=== PATIENT | male | born 1975 | race Caucasian/White ===

== ENCOUNTER → 2017-07-13 | Day surgery (SDC) | payer OTHER ==
[~2017-07-13] VITALS: Ht 188 cm; Wt 116.4 kg
[2017-07-13] VITALS (7 sets, daily range): BP systolic 115–134; BP diastolic 82–95; PULSE 62–74; RESP 15–19; O2SAT 97–100
[~2017-07-13] MED LIST: ACET-171 PO; Bupivacaine Liposome 1.3% 20 mL Inj INFILTRATE ONE; Bupivacaine Liposome 1.3% 20 mL Inj ONE; Bupivacaine-MPF 0.5% 30 mL Inj INFILTRATE ONE; CYCL10TA9 PO; Dexamethasone 4 mg/mL Inj IVPUSH PRN; EPHEDrine Sulfate 50 mg/mL Inj IVPUSH PRN; HYDR30CR98 RC; HYDROmorphone 1 mg/mL Inj IVPUSH PRN; IBUP-1827 PO; Lactated Ringer's 1,000 ML IV ONE; Lactated Ringer's 1,000 ML IV SCH; Lactated Ringer's 500 ML IV PRN; MetoCLOpramide 5 mg/mL 2 mL Inj IVPUSH PRN; NPR500T PO; OXYC-530 PO; Ondansetron 2 mg/mL 2 mL Inj IVPUSH PRN; Ondansetron 2 mg/mL 2 mL Inj ONE; POLY17PO6 PO; Phenylephrine 10,000 mCg/mL Inj IVPUSH PRN; Propofol 10,000 mCg/mL 20 mL Inj ONE; fentaNYL-PF 50 mCg/mL 2 mL Inj IVPUSH PRN; fentaNYL-PF 50 mCg/mL 2 mL Inj ONE
--- NOTE | 2017-07-13 13:43 | PCM.HPANE ---
Patient Data Surgeon Admitting Provider: Attending Provider:Lisa Drummond MD Primary Care Physician:Trena Lazo DO Other Provider:Avril Brooksingham Anesthesia Reason for Visit External Hemorrhoids Ht/WT & BMI Height (Feet): 6 Height (Inches): 2 Weight (Kilograms): 116.4 Body Mass Index 32.00 Allergies Coded Allergies: No Known Allergies (Unverified , 07/13/17) Past Anesthesia History Anesthesia History: Denies:: Abnormal Airway, Anesthesia Reactions, Difficult Intubation, Fam Anesthesia Reaction Diabetes History Hx Diabetes?: No MRSA MRSA: No Medications Active Scripts Polyethylene Glycol 3350 (Miralax)17 Gm Powd.pack17 Gm PO DAILY PRN For Constipation #1 BOTTLE Prov:Dorothea Paez MD 07/13/17 oxyCODONE 5 Mg Tablet5 Mg PO Q4H PRN For Pain #20 TABLET Prov:Dorothea Paez MD 07/13/17 Ibuprofen 600 Mg [id number] Mg PO QID PRN For Pain #30 TABLET Prov:Dorothea Paez MD 07/13/17 Acetaminophen 500 Mg [id number] Mg PO Q6H PRN For Pain #60 TABLET Prov:Dorothea Paez MD 07/13/17 Reported Medications Naproxen 500 Mg [id number] Mg PO BID PRN For Pain Ref 0 07/07/17 Hydrocortisone 2.5 % Cream.appl30 Gm RC PRN skin irritation 07/07/17 Cyclobenzaprine 10 Mg [id number] Mg PO TID PRN Spasm 07/07/17 History History of ENT Problems?: No HEENT History: Denies:: Abnormal Airway Cataracts Difficult Intubation Dysphagia Glaucoma Hearing Problem Sinus Problem TMJ Denture Type: Full- Upper Teeth Condition: Within Normal Limits Hx of Heart Problems?: No Cardiovascular History: Positive for:: Chest Pain (chronic, cardiac source ruled out by Dr Lazo ) Denies:: AICD Abdominal Aortic Aneurism Atrial Fibrillation Congestive Heart Failure Heart Murmur Hypertension Irregular Heartbeat Pacemaker Peripheral Vascular Hx of Respiratory Problem?: Yes Respiratory History: Denies:: Asthma COPD Emphysema Oxygen Administration Pneumonia Tuberculosis Use of C-PAP Machine (could not tolerate CPAP, BALJIT +) Hx Neurologic Problems?: No Neurological History: Denies:: CVA Headaches Multiple Sclerosis Parkinson's Disease Seizures Hx of GI Problems?: Yes Hx of Problems?: No Genitourinary History: Denies:: Kidney Stones Urinary Tract Infection Male Hx: Denies:: Prostate Problems Skin History: Denies:: History Skin Disorders? Pressure Ulcers Hx Musculoskeletal Problems?: Yes Musculoskeletal History: Positive for:: Musculoskeletal Trauma (hx of left wrist ganglion, right carpal tunnel ) Denies:: Back Injury Fibromyalgia Joint Replacement Osteoarthritis Systemic Lupus Hx of Psycho/Social Problems?: No Psycho Social History: Denies:: Anxiety Hx Depression Hx Surgeries?: Yes (left wrist ganglionectomy, right carpal tunnel release) Hx Any Other Health Problems?: Yes Other History: Denies:: Cancer Thyroid Disease History Blood Transfusions: Positive for:: Accept Blood Products? Denies:: Blood Transfusions Hx Diabetes: No Hx Alcohol Use: YesAlcoholic Drinks Per Day: one drink every few monthsHx Substance Use: No Smoking Status: Unknown if Ever Smoker Have You Smoked inLast 12 mo: No Stop/Bang S-Snoring: Do You Snore Loudly: Yes T-Tired: feel tired, fatigued: Yes O-Obsered: Observed not breath: Yes P-Blood Pressure: treated: No B- Body Mass Index > 35 kg/m2: No A- Age over 50: No N- Neck Large Circumference: No G- Gender Male: Yes BALJIT Total Score: 4 BALJIT Risk Assessment: High Risk, =/>3 Yes Risk Assessment Category Category 1A: Patient has history of documented sleep apnea, and HAS NOT received any narcotic, sedative or anesthesia administration during this stay. Category 1B: Patient has history of documented sleep apnea, and HAS received any narcotic , sedative or anesthesia administration during this stay Category 2: Patient has SUSPECTED Obstructive Sleep Apnea, and HAS received any narcotic , sedative or anesthesia administration during this stay. Category 3: Patient has SUSPECTED Obstructive Sleep Apnea and HAS NOT received narcotic, sedative or anesthesia administration during this stay. Category 4: Outpatient in Procedural Areas with known sleep apnea or who screen positive for High Risk via the STOP/BANG questionnaire. Exam Exam Vital Signs Vital Signs Date Time Temp Pulse Resp B/P Pulse Ox O2 Delivery O2 Flow Rate FiO2 07/13/17 13:11 36.3 71 18 131/94 98 General Appearance: Alert, Oriented X3 HEENT/AIRWAY: MP 2 Lungs: Clear to Auscultation Heart: Exam Unremarkable Meds/Labs/Diagnostics Admission Meds Current Medications Lactated Ringer's (Lr) 1,000 ml @ ud STK-MED ONCE IV Last administered on 07/13t 13:30; Start 07/13/17 at 13:30; Stop 07/13/17 at 13:40; Status DC Plan Impression Patient chart reviewed, patient interviewed and anesthestic plan with risks, benefits, and alternatives discussed, and informed consent obtained. ASA Physical Status: ASA2 Mod Systemic Disease Anesthetic Plan: GA Bene/Risks/Altern/Consents: Yes HP Complete Prior to Induction: Yes Justina Cota MD Jul 13, 2017 13:43
--- NOTE | 2017-07-13 15:33 | PCM.DISURG ---
Surgical Discharge Instruction Date of Service Jul 13, 2017 Dates of Hospitalization Date of Hospital Admission Providers Admitting Physician: Primary Care Physician: Trena Lazo DO Attending Physician: Lisa Drummond MD Discharge Diagnosis Post Operative diagnosis Right external hemorrhoid Diet Discharge Diet: No restrictions Activity Discharge Activity-General: No restrictions Dressing and Incisional Care Dressing Care: Other (May use gauze or pads in briefs to collect drainage, keep area clean and dry. Take a sitz bath (sit in warm water) after bowel movements or three times daily for comfort.) Hygiene: May shower Follow Up Plan Follow-up Provider (F9): Lisa Drummond MD Follow-up appointment: Weeks (2-4) Dorothea Paez MD Jul 13, 2017 15:33
--- NOTE | 2017-07-13 15:45 | PCM.SURGOP ---
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 His primary symptom is bleeding, however, he also has symptoms of discomfort and perianal fullness. His largest hemorrhoid was at the right lateral position on external examination in the office. Findings: Large right anterolateral and posterolateral external and internal hemorrhoids. The external component was confluent. A smaller, was at the left lateral position, and this was left in situ. Procedure Details The patient was brought to the operating room and placed in supine position. General anesthesia was induced. He was repositioned into high lithotomy position. The operative field was prepped and draped in sterile fashion. A preprocedural timeout was performed to confirm the correct patient, procedure, site, and side. External examination and digital rectal examination were performed. He had a large external hemorrhoidal complex at the right anterolateral/right posterior lateral positions. Internal hemorrhoids were seen at these sites. On the left was a much smaller complex laterally. 0.5% Marcaine was injected at the base of the right-sided hemorrhoids. A 3-0 chromic stitch was placed proximal to the hemorrhoids. The right anterolateral and right posterior lateral columns were excised with electrocautery, with care taken to preserve the sphincter complex. The 3-0 chromic stitch was then run from rock small to distal to close the defect. Additional Marcaine was injected, followed by 20 mL of liposomal bupivacaine, and perianal fashion and at the site of the hemorrhoidectomy. Hemostasis was achieved. The patient tolerated the procedure well. An ABD pad was placed. He was taken to the postoperative care unit in good condition. Complications There were no periprocedural complications identified. Surgical Specimen Removed: Yes Specimen sent to Pathology: Yes Surgical Specimen description: Right sided hemorrhoids as noted above Anesthetic Plan: GA Grafts, Implants: None Output, Estimated Blood Loss: 10 (ml) Blood Administration during james: No Lisa Drummond MD Jul 13, 2017 15:45
--- NOTE | 2017-07-13 15:59 | PCM.ANEP1 ---
Post Anesthesia PACU Phase 1 Assessment Vital Signs Vital Signs Date Time Temp Pulse Resp B/P Pulse Ox O2 Delivery O2 Flow Rate FiO2 07/13/17 15:53 70 18 134/95 97 Room Air 07/13/17 15:50 36.4 66 17 123/91 98 Room Air 07/13/17 15:45 70 19 115/83 99 Room Air 07/13/17 15:40 72 15 126/87 100 Simple Mask 6 07/13/17 15:35 36.0 74 15 119/82 100 Simple Mask 6 07/13/17 13:11 36.3 71 18 131/94 98 Anesthetic Administered: GA Level of Alertness: Awake, talking LEDESMA's with Equal Strength: Yes Pain: No Nausea or Vomiting: No CV Function & Hydration Stable: Yes Airway Device: Oxygen Delivery: Room Air Lungs: Clear to Auscultation PACU Phase 2 Assessment Complications: No Follow up Care: No Patient Instructions Provided: Yes Justina Cota MD Jul 13, 2017 15:59
== END | disposition home or self-care (01) ==
LOC: SAS 12:56
PROVIDERS: ATTEND Surgery
DX: K64.4 Residual hemorrhoidal skin tags (principal); K64.8 Other hemorrhoids; E78.5 Hyperlipidemia, unspecified; F41.9 Anxiety disorder, unspecified; R07.89 Other chest pain
CPT/HCPCS: 46260; J2405; J2704; J3010; J7120

== ENCOUNTER 2017-07-15 16:40 | Emergency (ER) | payer OTHER ==
[~2017-07-15] VITALS: Ht 188 cm; Wt 115.9 kg
[~2017-07-15 16:40] MED LIST changes: -Bupivacaine Liposome 1.3% 20 mL Inj INFILTRATE ONE; -Bupivacaine Liposome 1.3% 20 mL Inj ONE; -Bupivacaine-MPF 0.5% 30 mL Inj INFILTRATE ONE; -Dexamethasone 4 mg/mL Inj IVPUSH PRN; -EPHEDrine Sulfate 50 mg/mL Inj IVPUSH PRN; -HYDROmorphone 1 mg/mL Inj IVPUSH PRN; -Lactated Ringer's 1,000 ML IV ONE; -Lactated Ringer's 1,000 ML IV SCH; -Lactated Ringer's 500 ML IV PRN; -MetoCLOpramide 5 mg/mL 2 mL Inj IVPUSH PRN; -Ondansetron 2 mg/mL 2 mL Inj IVPUSH PRN; -Ondansetron 2 mg/mL 2 mL Inj ONE; -Phenylephrine 10,000 mCg/mL Inj IVPUSH PRN; -Propofol 10,000 mCg/mL 20 mL Inj ONE; -fentaNYL-PF 50 mCg/mL 2 mL Inj IVPUSH PRN; -fentaNYL-PF 50 mCg/mL 2 mL Inj ONE
[2017-07-15 16:50] VITALS: BP 148/102; PULSE 88; RESP 16; O2SAT 98
--- NOTE | 2017-07-15 18:04 | ED.REPORT ---
HPI-General Illness Date of Service Jul 15, 2017 ED Provider: Surya Galindo MD The patient is a 42 year old male with a history of hyperlipidemia, and hemorrhoidectomy presenting to the ED complaining of perirectal pain onset 2 days ago after his hemorrhoidectomy. He describes the pain as 9/10 severity, sharp, constant, and non-radiating. He claims he has had normal bowel movements since the procedure. Denied symptoms include fever, chills, nausea, vomiting, diarrhea, vision changes, headache, chest pain, abdominal pain, or shortness of breath. He claims that he took oxycodone 4 hour prior to arrival at the ED. Nursing Notes Stated Complaint: COMPLICATIONS FROM SURGERY Chief Complaint: Male Abdominal Pain Nursing Notes Reviewed: Yes Allergies: Coded Allergies: No Known Allergies (Unverified , 07/15/17) Scheduled PRN Acetaminophen (Acetaminophen) 500 Mg Tablet 500 MG PO Q6H PRN PRN For Pain Cyclobenzaprine (Cyclobenzaprine) 10 Mg Tablet 10 MG PO TID PRN PRN Spasm Hydrocortisone (Hydrocortisone) 2.5 % Cream.appl 30 GM RC PRN skin irritation Ibuprofen (Ibuprofen) 600 Mg Tablet 600 MG PO QID PRN PRN For Pain Naproxen (Naproxen) 500 Mg Tab 500 MG PO BID PRN PRN For Pain Polyethylene Glycol 3350 (Miralax) 17 Gm Powd.pack 17 GM PO DAILY PRN PRN For Constipation oxyCODONE (oxyCODONE) 5 Mg Tablet 5 MG PO Q4H PRN PRN For Pain General Time Seen by MD: 18:03 Chief Complaint Other (anus pain) Hx Obtained From: Patient Arrived By: Walk-in Sudden in Onset?: Yes Onset Occurred: 2 days ago Symptom Duration: Constant Quality: Sharp Radiation: : Does not radiate Severity: Current: Pain level 9 out of 10 Severity: Maximum: Pain level 9 out of 10 Associated with: Denies: Fever, Headache, Nausea Exacerbated by: Moving affected area Recent Healthcare: No recent hospitalization, Recent doctor visit Similar Sx Previous: No Past Medical History Past Medical History Hyperlipidemia Suspected Costal Chondritis Onychomycosis Carpal Tunnel Syndrome (R) Groin Strain Past Surgical History Hemorrhoidectomy 07/13/17 Family History [place] - Pt's uncle Smoking History Unknown if Ever Smoker Social History Other Social History: Good social support, Local 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 Physical Exam Nursing note and vitals reviewed. Constitutional: Well-developed, well-nourished. Not diaphoretic. Head: Normocephalic and atraumatic. Mouth/Throat: Oropharynx is clear and moist. No oropharyngeal exudate. Eyes: EOM are normal. Pupils are equal, round, and reactive to light. Neck: Supple, no tracheal deviation. Cardiovascular: Normal rate, regular rhythm. Equal and intact distal pulses throughout. Pulmonary/Chest: Effort normal and breath sounds normal. No respiratory distress. Abdominal: Soft. No distension. There is no tenderness, rebound, or guarding. Bowel sounds present. Musculoskeletal: Range of motion grossly intact, moving all extremities. No edema or tenderness appreciated. Rectal incision site appears intact. No signs of wound dehiscence or wound infection. No erythema. No purulent drainage. Suture present several cm proximal to anal verge. Neurological: AOx3. Grossly nonfocal exam. Strength and sensation intact and equal to bilateral upper and lower extremities. Skin: Warm and dry, no rashes or pallor appreciated. Psychiatric: Appropriate mood and affect. Behavior appears normal. Vital Signs Vital Signs Date Time Temp Pulse Resp B/P Pulse Ox O2 Delivery O2 Flow Rate FiO2 07/15/17 16:50 37.3 88 16 148/102 98 Room Air Initial VS: Reviewed Re-Eval/Medical Decision Med Decision/Clinical Course 42-year-old male presenting to the ED for evaluation of worsening perirectal pain in the setting of hemorrhoidectomy 2 days ago. Afebrile, nontoxic appearing. Patient appears to be in significant pain. He has been having bowel movements. There is no sign of wound infection or wound dehiscence. Given 1 mg of Dilaudid IM here in the ED with mild to moderate improvement in symptoms. No signs of systemic infection at this time. Patient is concerned that his "butt cheeks are sewn together." He has been having bowel movements and there is no sign of obstruction. Given his concerns, I did discuss the patient with Dr. Boudreaux, who kindly agreed to evaluate the patient in the ED. He removed the suture proximal to the anal verge. After discussion with both the patient and surgery, decision made to discharge home with careful return precautions, follow-up in clinic as scheduled. Patient agreeable to the plan as stated, no further questions. Time of Eval: 19:52 Re-Evaluation/Progress Note: Patient rechecked. Discussed plan for discharge. All questions addressed at this time. Consultation #1: Referral / Consult Name: Kota Henry MD Consulted With: Surgeon Call Returned at: 18:43 Note: Discussed patient's previous surgery. Consultation #2: Referral / Consult Name: Kota Henry MD Consulted With: Surgeon Call Returned at: 19:17 Note: Discussed patient's current case. Agrees with evaluation. Counseled Regarding: Diagnosis, Need for follow-up, When/why to return to ED Discharge & Departure Primary Impression: Rectal pain Additional Impression: Hemorrhoid Hemorrhoid type: unspecified Qualified Code: K64.9 - Unspecified hemorrhoids Disposition: Home Discharge Condition All VS Reviewed: Yes Condition: Improved Patient Instructions: Hemorrhoidectomy (GEN), Hemorrhoids (ED) Additional Instructions: Thank you for allowing us to be a part of your care in the ED today. Please review attached material for more information. Please keep your follow up appointments. Return to the emergency department for any new or worsening symptoms including any fever, nausea, vomiting, abdominal pain, shortness of breath, chest pain, one sided weakness/numbness, or if there's anything else of concern to you. Referrals: Trena Lazo DO (PCP) Marie Attestation Portions of this note were transcribed by Oral Hare. I, Dr. Galindo personally performed the history, physical exam and medical decision-making; I reviewed and confirmed the accuracy of the information in the transcribed note. Signed by: Marie Todd, 07/15/2017 copies to: Trena Lazo William B MD Jul 15, 2017 18:04 Jul 15, 2017 18:35
[2017-07-15] MEDS ORDERED: HYDROmorphone 1 mg/mL Inj IM ONE (18:35)
[2017-07-15 20:08] VITALS: BP 144/95; PULSE 90; RESP 20; O2SAT 96
== END 2017-07-15 20:09 | disposition home or self-care (01) ==
LOC: SED 16:40
DX: K62.89 Other specified diseases of anus and rectum (principal); K64.9 Unspecified hemorrhoids; G89.18 Other acute postprocedural pain; E78.5 Hyperlipidemia, unspecified; Z90.49 Acquired absence of other specified parts of digestive tract
CPT/HCPCS: 96372; 99284; J1170